=== PATIENT | male | born 1990 | race Caucasian/White ===

== ENCOUNTER 2022-01-19 14:39 | Emergency (ER) | payer SELFPAY ==
[~2022-01-19] VITALS: Ht 185.4 cm; Wt 81.8 kg
[2022-01-19] VITALS (9 sets, daily range): BP systolic 130–163; BP diastolic 61–104
[~2022-01-19 14:39] MED LIST: DOXYCYC MONO100 MG OR; FLEXERIL OR; LORTAB5 OR; MEDDOSEPAK PO; NO HOME MEDS; TRIAMCINOLON0.025 % TOP; ULTRAM50 M1 PO
[2022-01-19 15:25] LABS: HEMATOCRIT 52.1 % (39.0-50.0); IMMATURE GRANULOCYTES 0.3 % (0.0-5.0); MEAN CELL VOLUME 88.3 fL CALC (80.0-100.0); MEAN CORPUSCULAR HGB 31.4 pG CALC (26.0-32.0); MEAN CORPUSCULAR HGB CONC 35.5 g/dL CAL (32.0-36.0); NEUT# 11.83 thou/uL (1.82-7.42); RED BLOOD COUNT 5.9 mill/uL (4.70-6.10)
[2022-01-19 15:28] LABS: HEMOGLOBIN 18.5 g/dl (14.0-18.0)
[2022-01-19] MEDS ORDERED: TRAMADOL HCL50 MG PO (15:29)
[2022-01-19] MEDS ORDERED: HYDROCO/APAP1 T10 PO (15:30)
[2022-01-19] MEDS ORDERED: BENTYL10 M1 PO (15:30)
[2022-01-19] MEDS ORDERED: DIAZEPAM5 MG PO (15:31)
[2022-01-19 15:48] LABS: ALBUMIN 5.1 g/dL (3.2-5.0); ALKALINE PHOSPHATASE 80 u/l (38-126); ANION GAP 18 (6-22 (CALC)); BILIRUBIN, TOTAL 0.8 mg/dL (0.0-1.4); BUN 9 mg/dL (9-20); BUN/CREATININE RATIO 9 (12-20 (CALC)); CARBON DIOXIDE 24 mmol/l (22-30); CHLORIDE 102 mmol/l (95-108); GFR FOR AFR.AMER. > 60 ML/MIN (>=60 (CALC)); GFR OTHER RACES > 60 ML/MIN (>=60 (CALC)); LIPASE 92 u/l (23-300); SGOT/AST 26 u/l (17-59); SODIUM 139 mmol/l (137-146); TOTAL PROTEIN 8.6 g/dL (6.3-8.2)
[2022-01-19 18:47] LABS: URINE BLOOD DIPSTICK NEGATIVE (NEGATIVE); URINE GLUCOSE - DIPSTICK NEGATIVE (NEGATIVE); URINE KETONE 40 mg/dL (NEGATIVE); URINE LEUK ESTERASE NEGATIVE (NEGATIVE); URINE PH 8.5 (4.5-8.0); URINE PROTEIN - DIPSTICK 30 mg/dL (NEG-TRACE); URINE UROBILINOGEN - DIPSTICK 0.2 E.U./dL (0.2)
[2022-01-19 18:48] LABS: URINE BILIRUBIN - DIPSTICK SMALL (NEGATIVE)
[2022-01-19 18:49] LABS: URINE COLOR DK. YELLOW; URINE NITRITE - DIPSTICK NEGATIVE (Negative)
[2022-01-19 18:53] LABS: URINE RBC 0-2 RBC/hpf (0-5)
[2022-01-19 18:54] LABS: URINE MUCUS MODERATE hpf (NONE-FEW); URINE WBC 0-2 WBC/hpf (0-5)
== END 2022-01-19 18:51 | disposition short-term general hospital (02) | DRG 392 ==
LOC: ED 14:39
PROVIDERS: Family Medicine
DX: R10.84 Generalized abdominal pain (principal); E87.2 Acidosis; R11.2 Nausea with vomiting, unspecified; R19.7 Diarrhea, unspecified; F17.210 Nicotine dependence, cigarettes, uncomplicated; Z87.442 Personal history of urinary calculi

== ENCOUNTER 2022-02-04 06:07 | Observation (INO) | payer SELFPAY ==
[2022-02-04] VITALS (17 sets, daily range): BP systolic 101–192; BP diastolic 62–138
[~2022-02-04] VITALS: Ht 185.4 cm; Wt 81.0 kg
[~2022-02-04 06:07] MED LIST changes: +BENTYL10 M1 PO; +DIAZEPAM5 MG PO; +HYDROCO/APAP1 T10 PO; +TRAMADOL HCL50 MG PO
[2022-02-04 06:44] LABS: HEMATOCRIT 52.9 % (39.0-50.0); HEMOGLOBIN 18.5 g/dl (14.0-18.0); IMMATURE GRANULOCYTES 0.1 % (0.0-5.0); MEAN CELL VOLUME 90.1 fL CALC (80.0-100.0); MEAN CORPUSCULAR HGB 31.5 pG CALC (26.0-32.0); NEUT# 11.92 thou/uL (1.82-7.42); RED BLOOD COUNT 5.87 mill/uL (4.70-6.10); RED CELL DISTRI WIDTH 13.4 % (11.5-15.5)
[2022-02-04 06:58] LABS: ALBUMIN 5.1 g/dL (3.2-5.0); ALKALINE PHOSPHATASE 82 u/l (38-126); AMYLASE 88 u/l (30-110); ANION GAP 18 (6-22 (CALC)); BUN 11 mg/dL (9-20); BUN/CREATININE RATIO 10 (12-20 (CALC)); CARBON DIOXIDE 23 mmol/l (22-30); CHLORIDE 103 mmol/l (95-108); CREATININE 1.1 mg/dL (0.7-1.3); GFR FOR AFR.AMER. > 60 ML/MIN (>=60 (CALC)); GFR OTHER RACES > 60 ML/MIN (>=60 (CALC)); LIPASE 129 u/l (23-300); POTASSIUM 3.7 mmol/l (3.5-5.1); SGOT/AST 25 u/l (17-59); SODIUM 140 mmol/l (137-146); TOTAL PROTEIN 8.6 g/dL (6.3-8.2)
[2022-02-04 07:30] LABS: URINE BLOOD DIPSTICK TRACE-INTACT (NEGATIVE); URINE COLOR BROWN; URINE GLUCOSE - DIPSTICK NEGATIVE (NEGATIVE); URINE KETONE 15 mg/dL (NEGATIVE); URINE PH 5.5 (4.5-8.0); URINE PROTEIN - DIPSTICK 100 mg/dL (NEG-TRACE); URINE SPECIFIC GRAVITY >=1.030
[2022-02-04 07:37] LABS: URINE BILIRUBIN - DIPSTICK MODERATE (NEGATIVE); URINE EPITHELIAL CELLS FEW EPI/hpf (0-FEW); URINE LEUK ESTERASE NEGATIVE (NEGATIVE); URINE NITRITE - DIPSTICK POSITIVE (Negative)
[2022-02-04 07:38] LABS: URINE BACTERIA MODERATE hpf; URINE CALCIUM OXALATE CRYSTALS FEW lpf; URINE MUCUS MANY hpf (NONE-FEW)
[2022-02-05] VITALS (11 sets, daily range): BP systolic 116–161; BP diastolic 67–100
[2022-02-05 06:32] LABS: MEAN CELL VOLUME 92.3 fL CALC (80.0-100.0); MEAN CORPUSCULAR HGB CONC 34.7 g/dL CAL (32.0-36.0); RED BLOOD COUNT 4.53 mill/uL (4.70-6.10); RED CELL DISTRI WIDTH 13.9 % (11.5-15.5)
[2022-02-05 06:46] LABS: HEMATOCRIT 41.8 % (39.0-50.0); HEMOGLOBIN 14.5 g/dl (14.0-18.0)
[2022-02-05 06:47] LABS: ALKALINE PHOSPHATASE 46 u/l (38-126); ANION GAP 11 (6-22 (CALC)); BILIRUBIN, TOTAL 0.6 mg/dL (0.0-1.4); BUN 11 mg/dL (9-20); BUN/CREATININE RATIO 14 (12-20 (CALC)); CARBON DIOXIDE 22 mmol/l (22-30); CHLORIDE 112 mmol/l (95-108); CREATININE 0.8 mg/dL (0.7-1.3); GFR FOR AFR.AMER. > 60 ML/MIN (>=60 (CALC)); GFR OTHER RACES > 60 ML/MIN (>=60 (CALC)); POTASSIUM 3.9 mmol/l (3.5-5.1); SGOT/AST 18 u/l (17-59); SODIUM 141 mmol/l (137-146)
[2022-02-05 07:07] LABS: ALBUMIN 3.3 g/dL (3.2-5.0); TOTAL PROTEIN 5.4 g/dL (6.3-8.2)
[2022-02-05] MEDS ORDERED: HYDROCO/APAP1 T10 PO (11:57)
[2022-02-05] MEDS ORDERED: ONDANSETRON4 MG PO (11:57)
[2022-02-05] MEDS ORDERED: CARAFATE1 GM PO (11:57)
[2022-02-05] MEDS ORDERED: PROTONIX40 M2 PO (11:57)
== END 2022-02-05 14:02 | disposition home or self-care (01) | DRG 392 ==
LOC: ED 06:07 → ED-I 09:10 → MS2 09:56 → ED 09:56 → MS2 02-05 14:02
PROVIDERS: Emergency Medicine; ADMIT Internal Medicine; ATTEND Internal Medicine
PROC: 0DBB8ZX Excision of Ileum, Via Natural or Artificial Opening Endoscopic, Diagnostic (ICD-10-PCS; principal; 2022-02-05)
PROC: 0DBE8ZX Excision of Large Intestine, Via Natural or Artificial Opening Endoscopic, Diagnostic (ICD-10-PCS; 2022-02-05)
PROC: 0DB98ZX Excision of Duodenum, Via Natural or Artificial Opening Endoscopic, Diagnostic (ICD-10-PCS; 2022-02-05)
PROC: 0DB78ZX Excision of Stomach, Pylorus, Via Natural or Artificial Opening Endoscopic, Diagnostic (ICD-10-PCS; 2022-02-05)
PROC: 0DB68ZX Excision of Stomach, Via Natural or Artificial Opening Endoscopic, Diagnostic (ICD-10-PCS; 2022-02-05)
PROC: 0DB48ZX Excision of Esophagogastric Junction, Via Natural or Artificial Opening Endoscopic, Diagnostic (ICD-10-PCS; 2022-02-05)
DX: K29.70 Gastritis, unspecified, without bleeding (principal); E87.2 Acidosis; K29.80 Duodenitis without bleeding; K44.9 Diaphragmatic hernia without obstruction or gangrene; F17.210 Nicotine dependence, cigarettes, uncomplicated; Z87.442 Personal history of urinary calculi
CPT/HCPCS: G0378; J1650; S0164

== ENCOUNTER 2022-03-09 13:44 | Emergency (ER) | payer SELFPAY ==
[~2022-03-09] VITALS: Ht 185.4 cm; Wt 80.4 kg
[~2022-03-09 13:44] MED LIST changes: +CARAFATE1 GM PO; +ONDANSETRON4 MG PO; +PROTONIX40 M2 PO
[2022-03-09 15:50] LABS: IMMATURE GRANULOCYTES 0.3 % (0.0-5.0); MEAN CORPUSCULAR HGB 31.5 pG CALC (26.0-32.0); MEAN CORPUSCULAR HGB CONC 35.4 g/dL CAL (32.0-36.0); NEUT# 12.02 thou/uL (1.82-7.42); RED BLOOD COUNT 5.9 mill/uL (4.70-6.10); RED CELL DISTRI WIDTH 14.4 % (11.5-15.5)
[2022-03-09 15:54] LABS: HEMATOCRIT 52.5 % (39.0-50.0); HEMOGLOBIN 18.6 g/dl (14.0-18.0)
[2022-03-09 16:03] LABS: AMYLASE 98 u/l (30-110); ANION GAP 23 (6-22 (CALC)); BUN 7 mg/dL (9-20); BUN/CREATININE RATIO 10 (12-20 (CALC)); CARBON DIOXIDE 21 mmol/l (22-30); CHLORIDE 102 mmol/l (95-108); CREATININE 0.7 mg/dL (0.7-1.3); GFR FOR AFR.AMER. > 60 ML/MIN (>=60 (CALC)); GFR OTHER RACES > 60 ML/MIN (>=60 (CALC)); LIPASE 149 u/l (23-300); POTASSIUM 3.9 mmol/l (3.5-5.1); SGOT/AST 31 u/l (17-59); SODIUM 143 mmol/l (137-146)
[2022-03-09 16:12] LABS: ALBUMIN 5.5 g/dL (3.2-5.0); ALKALINE PHOSPHATASE 94 u/l (38-126); TOTAL PROTEIN 9.7 g/dL (6.3-8.2)
[2022-03-09 16:23] LABS: URINE BLOOD DIPSTICK NEGATIVE (NEGATIVE); URINE COLOR BROWN; URINE GLUCOSE - DIPSTICK NEGATIVE (NEGATIVE); URINE KETONE 15 mg/dL (NEGATIVE); URINE LEUK ESTERASE NEGATIVE (NEGATIVE); URINE PH 8.5 (4.5-8.0); URINE PROTEIN - DIPSTICK 100 mg/dL (NEG-TRACE); URINE SPECIFIC GRAVITY 1.015
[2022-03-09 16:25] LABS: URINE BILIRUBIN - DIPSTICK SMALL (NEGATIVE); URINE NITRITE - DIPSTICK NEGATIVE (Negative)
[2022-03-09 16:47] LABS: URINE RBC 0-2 RBC/hpf (0-5); URINE WBC 0-2 WBC/hpf (0-5)
[2022-03-09 16:48] LABS: URINE AMORPH SEDIMENT MANY hpf (NONE-FER); URINE TRIP PHOS CRYSTALS FEW lpf
[2022-03-09] MEDS ORDERED: PROTONIX40 M2 PO (18:21)
[2022-03-09] MEDS ORDERED: DICYCLOMINE10 MG PO (18:21)
[2022-03-09] MEDS ORDERED: CARAFATE1 GM PO (18:21)
[2022-03-09] MEDS ORDERED: REGLAN10 MG PO (18:21)
[2022-03-09 18:32] VITALS: BP 133/35
== END 2022-03-09 18:39 | disposition home or self-care (01) | DRG 392 ==
LOC: ED 13:44
PROVIDERS: Nurse Practitioner
DX: K29.70 Gastritis, unspecified, without bleeding (principal); R11.2 Nausea with vomiting, unspecified
CPT/HCPCS: S0164

== ENCOUNTER 2022-05-27 17:47 | Emergency (ER) | payer SELFPAY ==
[2022-05-27] VITALS (17 sets, daily range): BP systolic 109–173; BP diastolic 72–102
[~2022-05-27] VITALS: Ht 185.4 cm; Wt 81.8 kg
[~2022-05-27 17:47] MED LIST changes: +DICYCLOMINE10 MG PO; +REGLAN10 MG PO
[2022-05-27 18:11] LABS: HEMATOCRIT 48.6 % (39.0-50.0); HEMOGLOBIN 17.2 g/dl (14.0-18.0); IMMATURE GRANULOCYTES 0.2 % (0.0-5.0); MEAN CELL VOLUME 88.5 fL CALC (80.0-100.0); MEAN CORPUSCULAR HGB 31.3 pG CALC (26.0-32.0); MEAN CORPUSCULAR HGB CONC 35.4 g/dL CAL (32.0-36.0); NEUT# 8.67 thou/uL (1.82-7.42); RED BLOOD COUNT 5.49 mill/uL (4.70-6.10); RED CELL DISTRI WIDTH 12.6 % (11.5-15.5)
[2022-05-27 18:28] LABS: ALBUMIN 5.1 g/dL (3.2-5.0); ALKALINE PHOSPHATASE 76 u/l (38-126); ANION GAP 20 (6-22 (CALC)); BUN 6 mg/dL (9-20); BUN/CREATININE RATIO 9 (12-20 (CALC)); CARBON DIOXIDE 21 mmol/l (22-30); CHLORIDE 105 mmol/l (95-108); CREATININE 0.7 mg/dL (0.7-1.3); GFR FOR AFR.AMER. > 60 ML/MIN (>=60 (CALC)); GFR OTHER RACES > 60 ML/MIN (>=60 (CALC)); LIPASE 83 u/l (23-300); POTASSIUM 3.2 mmol/l (3.5-5.1); SGOT/AST 29 u/l (17-59); SODIUM 143 mmol/l (137-146); TOTAL PROTEIN 8.2 g/dL (6.3-8.2)
[2022-05-27 18:29] LABS: BILIRUBIN, TOTAL 0.4 mg/dL (0.0-1.4)
[2022-05-27 21:08] LABS: URINE BILIRUBIN - DIPSTICK NEGATIVE (NEGATIVE); URINE BLOOD DIPSTICK NEGATIVE (NEGATIVE); URINE COLOR YELLOW; URINE GLUCOSE - DIPSTICK NEGATIVE (NEGATIVE); URINE KETONE 15 mg/dL (NEGATIVE); URINE LEUK ESTERASE NEGATIVE (NEGATIVE); URINE PH 7.5 (4.5-8.0); URINE PROTEIN - DIPSTICK NEGATIVE (NEG-TRACE); URINE SPECIFIC GRAVITY 1.025; URINE UROBILINOGEN - DIPSTICK 0.2 E.U./dL (0.2)
[2022-05-27 21:10] LABS: URINE NITRITE - DIPSTICK NEGATIVE (Negative)
[2022-05-27] MEDS ORDERED: PEPCID20 MG PO (21:13)
[2022-05-27] MEDS ORDERED: LORTAB 1010 MG PO (21:13)
[2022-05-27] MEDS ORDERED: ONDANSETRON4 MG PO (21:13)
[2022-05-27] MEDS ORDERED: CARAFATE PO (21:13)
== END 2022-05-27 22:25 | disposition home or self-care (01) | DRG 392 ==
LOC: ED 17:47
PROVIDERS: Family Medicine
DX: K29.70 Gastritis, unspecified, without bleeding (principal)

== ENCOUNTER 2022-06-11 07:20 | Emergency (ER) | payer SELFPAY ==
[~2022-06-11] VITALS: Ht 185.4 cm; Wt 80.7 kg
[2022-06-11] VITALS (9 sets, daily range): BP systolic 61–170; BP diastolic 23–111
[~2022-06-11 07:20] MED LIST changes: +CARAFATE PO; +LORTAB 1010 MG PO; +PEPCID20 MG PO
[2022-06-11 08:09] LABS: HEMATOCRIT 47.3 % (39.0-50.0); HEMOGLOBIN 16.4 g/dl (14.0-18.0); IMMATURE GRANULOCYTES 0.1 % (0.0-5.0); MEAN CELL VOLUME 92.7 fL CALC (80.0-100.0); MEAN CORPUSCULAR HGB 32.2 pG CALC (26.0-32.0); MEAN CORPUSCULAR HGB CONC 34.7 g/dL CAL (32.0-36.0); NEUT# 15.02 thou/uL (1.82-7.42); RED BLOOD COUNT 5.1 mill/uL (4.70-6.10); RED CELL DISTRI WIDTH 13.4 % (11.5-15.5)
[2022-06-11 09:21] LABS: ALBUMIN 4.4 g/dL (3.2-5.0); ALKALINE PHOSPHATASE 54 u/l (38-126); BILIRUBIN, TOTAL 0.5 mg/dL (0.0-1.4); BUN 12 mg/dL (9-20); BUN/CREATININE RATIO 17 (12-20 (CALC)); CARBON DIOXIDE 20 mmol/l (22-30); CHLORIDE 109 mmol/l (95-108); CREATININE 0.7 mg/dL (0.7-1.3); GFR FOR AFR.AMER. > 60 ML/MIN (>=60 (CALC)); GFR OTHER RACES > 60 ML/MIN (>=60 (CALC)); LIPASE 126 u/l (23-300); SGOT/AST 22 u/l (17-59); SODIUM 141 mmol/l (137-146); TOTAL PROTEIN 6.8 g/dL (6.3-8.2)
[2022-06-11 09:24] LABS: ANION GAP 17 (6-22 (CALC)); POTASSIUM 4.5 mmol/l (3.5-5.1)
== END 2022-06-11 10:53 | disposition left against medical advice (07) | DRG 392 ==
LOC: ED 07:20
PROVIDERS: Emergency Medicine
DX: R10.9 Unspecified abdominal pain (principal)

== ENCOUNTER 2022-06-19 15:35 | Emergency (ER) | payer SELFPAY ==
[~2022-06-19] VITALS: Ht 185.4 cm; Wt 80.7 kg
[2022-06-19 16:14] VITALS: BP 153/109
[2022-06-19 17:17] LABS: HEMATOCRIT 48.2 % (39.0-50.0); HEMOGLOBIN 17.1 g/dl (14.0-18.0); IMMATURE GRANULOCYTES 0.2 % (0.0-5.0); MEAN CELL VOLUME 89.6 fL CALC (80.0-100.0); MEAN CORPUSCULAR HGB 31.8 pG CALC (26.0-32.0); MEAN CORPUSCULAR HGB CONC 35.5 g/dL CAL (32.0-36.0); NEUT# 13.38 thou/uL (1.82-7.42); RED BLOOD COUNT 5.38 mill/uL (4.70-6.10); RED CELL DISTRI WIDTH 13.5 % (11.5-15.5)
[2022-06-19 17:26] LABS: ANION GAP 19 (6-22 (CALC)); BILIRUBIN, TOTAL 0.6 mg/dL (0.0-1.4); BUN 11 mg/dL (9-20); BUN/CREATININE RATIO 14 (12-20 (CALC)); CARBON DIOXIDE 21 mmol/l (22-30); CHLORIDE 107 mmol/l (95-108); CREATININE 0.8 mg/dL (0.7-1.3); GFR FOR AFR.AMER. > 60 ML/MIN (>=60 (CALC)); GFR OTHER RACES > 60 ML/MIN (>=60 (CALC)); LIPASE 34 u/l (23-300); POTASSIUM 3.9 mmol/l (3.5-5.1); SGOT/AST 33 u/l (17-59); SODIUM 143 mmol/l (137-146)
[2022-06-19 17:27] LABS: ALKALINE PHOSPHATASE 85 u/l (38-126); TOTAL PROTEIN 8.3 g/dL (6.3-8.2)
[2022-06-19 18:24] VITALS: BP 183/106
[2022-06-19] MEDS ORDERED: CLONIDINE0.2 MG PO (19:41)
[2022-06-19 19:54] VITALS: BP 183/106
== END 2022-06-19 20:05 | disposition home or self-care (01) | DRG 392 ==
LOC: ED 15:35
PROVIDERS: Family Medicine
DX: R10.9 Unspecified abdominal pain (principal); F11.23 Opioid dependence with withdrawal; R11.2 Nausea with vomiting, unspecified

== ENCOUNTER 2022-07-20 15:29 | Emergency (ER) | payer SELFPAY ==
[~2022-07-20] VITALS: Ht 185.4 cm; Wt 79.1 kg
[~2022-07-20 15:29] MED LIST changes: +CLONIDINE0.2 MG PO
[2022-07-20] MEDS ORDERED: OMEPRAZOLE DR40 MG (17:09)
[2022-07-20 17:54] LABS: BASO% 0.1 % (0-3); EOS% 4.3 % (0-8); HEMATOCRIT 44.1 % (39.0-50.0); HEMOGLOBIN 15.6 g/dl (14.0-18.0); IMMATURE GRANULOCYTES 0.1 % (0.0-5.0); LYMPH% 23.8 % (15-41); MEAN CELL VOLUME 92.8 fL CALC (80.0-100.0); MEAN CORPUSCULAR HGB 32.8 pG CALC (26.0-32.0); MEAN CORPUSCULAR HGB CONC 35.4 g/dL CAL (32.0-36.0); MONO% 9.5 % (2-13); NEUT# 4.51 thou/uL (1.82-7.42); NEUT% 62.2 % (42-76); RED BLOOD COUNT 4.75 mill/uL (4.70-6.10); RED CELL DISTRI WIDTH 13.4 % (11.5-15.5)
[2022-07-20 18:08] LABS: ALBUMIN 4.5 g/dL (3.2-5.0); ALKALINE PHOSPHATASE 64 u/l (38-126); BILIRUBIN, TOTAL 0.5 mg/dL (0.0-1.4); BUN 17 mg/dL (9-20); BUN/CREATININE RATIO 20 (12-20 (CALC)); CHLORIDE 102 mmol/l (95-108); CREATININE 0.9 mg/dL (0.7-1.3); GFR FOR AFR.AMER. > 60 ML/MIN (>=60 (CALC)); GFR OTHER RACES > 60 ML/MIN (>=60 (CALC)); LIPASE 20 u/l (23-300); POTASSIUM 4.1 mmol/l (3.5-5.1); SGOT/AST 28 u/l (17-59); SODIUM 136 mmol/l (137-146); TOTAL PROTEIN 7.3 g/dL (6.3-8.2)
[2022-07-20 18:20] LABS: ETHYL ALCOHOL 0 mg/dl (0-30)
[2022-07-20 18:22] LABS: ANION GAP 8 (6-22 (CALC)); CARBON DIOXIDE 30 mmol/l (22-30)
[2022-07-20 18:40] LABS: URINE BILIRUBIN - DIPSTICK NEGATIVE (NEGATIVE); URINE BLOOD DIPSTICK NEGATIVE (NEGATIVE); URINE COLOR YELLOW; URINE GLUCOSE - DIPSTICK NEGATIVE (NEGATIVE); URINE KETONE NEGATIVE (NEGATIVE); URINE LEUK ESTERASE NEGATIVE (NEGATIVE); URINE PH 6.5 (4.5-8.0); URINE PROTEIN - DIPSTICK NEGATIVE (NEG-TRACE); URINE UROBILINOGEN - DIPSTICK 0.2 E.U./dL (0.2)
[2022-07-20 18:41] LABS: ACT PARTIAL THROMBO TIME 19.1 SECONDS (20.0-32.5); PROTHROMBIN TIME 10.2 SECONDS (9.0-12.5)
[2022-07-20 18:42] LABS: URINE NITRITE - DIPSTICK NEGATIVE (Negative)
[2022-07-20 19:40] VITALS: BP 113/65
== END 2022-07-20 19:42 | disposition left against medical advice (07) | DRG 378 ==
LOC: ED 15:29
PROVIDERS: Emergency Medicine
DX: K92.1 Melena (principal); K50.90 Crohn's disease, unspecified, without complications; R13.10 Dysphagia, unspecified; Z53.29 Procedure and treatment not carried out because of patient's decision for other reasons
CPT/HCPCS: S0164

== ENCOUNTER 2024-02-04 09:14 | Observation (INO) | payer SELFPAY ==
[~2024-02-04] VITALS: Ht 185.4 cm; Wt 77.0 kg
[2024-02-04] VITALS (18 sets, daily range): BP systolic 110–183; BP diastolic 70–134
[~2024-02-04 09:14] MED LIST changes: +OMEPRAZOLE DR40 MG
--- NOTE | 2024-02-04 09:15 | NUR ---
PT TO ER ROOM 13 VIA EMS.
[2024-02-04] MEDS ORDERED: SODIUM CHLORIDE 0.9% 1,000 ML IV ONE ×3 (09:20→11:45)
[2024-02-04] MEDS ORDERED: KETOROLAC TROMETHAMINE 30 MG/ML SDV IV ONE (09:20)
[2024-02-04] MEDS ORDERED: ONDANSETRON HCl 4 MG/2 ML SDV IV ONE (09:20)
[2024-02-04] MEDS ORDERED: Pantoprazole Sodium 40 MG VIAL (Protonix) IV ONE (09:25)
--- NOTE | 2024-02-04 09:37 | NUR ---
multiple iv attempts to start an iv. 22g iv started by elvira eid on right foot.
[2024-02-04 09:44] LABS: BASO% 0.1 % (0-3); EOS% 0.2 % (0-8); HEMATOCRIT 49.3 % (39.0-50.0); HEMOGLOBIN 17.2 g/dl (14.0-18.0); IMMATURE GRANULOCYTES 0.4 % (0.0-5.0); LYMPH% 6.1 % (15-41); MEAN CORPUSCULAR HGB CONC 34.9 g/dL CAL (32.0-36.0); MONO% 5.9 % (2-13); NEUT# 24.04 thou/uL (1.82-7.42); NEUT% 87.3 % (42-76); RED BLOOD COUNT 5.54 mill/uL (4.70-6.10)
[2024-02-04] MEDS ORDERED: PROMETHAZINE HCL 25 MG/ML AMP IM ONE (10:00)
[2024-02-04 10:02] LABS: BILIRUBIN, TOTAL 0.7 mg/dL (0.2-1.3); POTASSIUM 3.5 mmol/l (3.5-5.1); TOTAL PROTEIN 8.3 g/dL (6.3-8.2)
[2024-02-04] MEDS ORDERED: MORPHINE SULFATE 4 MG/ML VIAL IV ONE (10:10)
--- NOTE | 2024-02-04 10:27 | NUR ---
DR. ZAMBRANO PERFORMING RECTAL PAIN. PATIENT COMPLAINS THAT THE PAIN IS NOT GETTING BETTER
[2024-02-04] MEDS ORDERED: HYDROmorphone HCL 2 MG/AMP IV ONE (10:55)
[2024-02-04] MEDS ORDERED: HALOPERIDOL LACTATE 5 MG/ML SDV IV ONE (10:55)
[2024-02-04] MEDS ORDERED: PIPERACILLIN Sodium-Tazobactam 3.375 GM in SODIUM CHLORIDE 0.9% 100 ML IV ONE (11:45)
--- NOTE | 2024-02-04 12:08 | NUR ---
DR. ZAMBRANO IN ROOM SPEAKING WITH PATIENT. PATIENT HAS 600ML OF URINE IN URINAL
[2024-02-04] MEDS ORDERED: methylPREDNISolone Sod Succ 40 MG/ML SDV IV ONE (12:15)
[2024-02-04 12:42] LABS: URINE BILIRUBIN - DIPSTICK Negative (NEGATIVE); URINE BLOOD DIPSTICK Negative (NEGATIVE); URINE COLOR Yellow; URINE GLUCOSE - DIPSTICK Negative (NEGATIVE); URINE KETONE Negative (NEGATIVE); URINE LEUK ESTERASE Negative (NEGATIVE); URINE NITRITE - DIPSTICK Negative (Negative); URINE PH 8.5 (4.5-8.0); URINE PROTEIN - DIPSTICK Negative (NEG-TRACE); URINE UROBILINOGEN - DIPSTICK 0.2 E.U./dL (0.2)
--- NOTE | 2024-02-04 13:03 | NUR ---
urine output 300ml
[2024-02-04] MEDS ORDERED: METHADONE HC10 MG/ML PO (13:11)
--- NOTE | 2024-02-04 13:20 | NUR ---
male pt received to [facility] via [facility] accompanied by nurse in stable condition; moaning loudly/restless down the esteban; ambulatory to scale then bed; admission assessment completed at this time; pt alert and oriented; pt admits to abd pain, n/v and diarrhea since last night; will medicate; resp even and unlabored; hr reg; tele monitor intact; abd soft/ tender with bs present; no bm noted; urinal provided; #20 to rac patent with ivf bolus infusing without complication; #22 to left foot flushed and patent; no redness or edema noted at site; plan of care/ diet/ meds explained; home liquid [employer] retrieve from patient and secured approx in tamper proof bag within view with 2nd nurse as a witness; call light within reach; will continue to monitor
[2024-02-04] MEDS ORDERED: LABETALOL HCL 20 MG/ 4 ML CARTRG IV PRN (13:45)
[2024-02-04] MEDS ORDERED: HYDROcodone 7.5 MG/Acetaminophen 325 MG/COMBO PO PRN (13:45)
[2024-02-04] MEDS ORDERED: SODIUM CHLORIDE 0.9% 1,000 ML IV PRN (13:45)
[2024-02-04] MEDS ORDERED: MAGNESIUM HYDROXIDE 30 ML UDC PO PRN (13:45)
[2024-02-04] MEDS ORDERED: HYDROmorphone HCL 2 MG/AMP IV PRN (13:45)
[2024-02-04] MEDS ORDERED: ACETAMINOPHEN 325 MG/TAB PO PRN (13:45)
--- NOTE | 2024-02-04 16:00 | NUR ---
PT IS RESTING IN BED, CALL LIGHT WITHIN REACH.
[2024-02-04] MEDS ORDERED: PIPERACILLIN Sodium-Tazobactam 3.375 GM in SODIUM CHLORIDE 0.9% 100 ML IV SCH (18:00)
--- NOTE | 2024-02-04 20:00 | NUR ---
BEDSIDE SHIFT REPORT COMPLETED. RESP EVEN AND UNLABORED. CALL LIGHT AND PERSONAL ITEMS WITHIN REACH. NO C/O CURRENTLY.
[2024-02-04] MEDS ORDERED: ENOXAPARIN SODIUM 40 MG/0.4 ML SYR SC SCH (21:00)
[2024-02-04] MEDS ORDERED: methylPREDNISolone Sod Succ 40 MG/ML SDV IV SCH (21:00)
--- NOTE | 2024-02-05 | NUR ---
MEDICATED WITH IV DILAUDID WITH GOOD RESULTS. USES URINAL FOR ELIMINATION.
--- NOTE | 2024-02-05 02:30 | NUR ---
MEDICATED WITH IV DILAUDID FOR C/O ABD PAIN 03/13.
--- NOTE | 2024-02-05 03:30 | NUR ---
MINIMAL RESULTS FROM IV DILAUDID. GAVE PRN LORITAB FOR CONTINUAL PAIN OF 9/. REQUESTED NICOTINE PATCH. WILL NOTIFY MD IN AM OF PATIENTS REQUEST.
[2024-02-05 05:06] VITALS: BP 120/82
[2024-02-05 05:39] LABS: HEMATOCRIT 45.6 % (39.0-50.0); HEMOGLOBIN 15.8 g/dl (14.0-18.0); MEAN CELL VOLUME 92.3 fL CALC (80.0-100.0); MEAN CORPUSCULAR HGB CONC 34.6 g/dL CAL (32.0-36.0); RED BLOOD COUNT 4.94 mill/uL (4.70-6.10); RED CELL DISTRI WIDTH 13.5 % (11.5-15.5)
[2024-02-05 05:47] LABS: ALBUMIN 4.1 g/dL (3.2-5.0); BILIRUBIN, TOTAL 0.6 mg/dL (0.2-1.3); CREATININE 0.7 mg/dL (0.7-1.3); MAGNESIUM 1.7 mg/dL (1.6-2.3); POTASSIUM 4.1 mmol/l (3.5-5.1); TOTAL PROTEIN 6.8 g/dL (6.3-8.2)
[2024-02-05 07:04] VITALS: BP 112/97
--- NOTE | 2024-02-05 07:32 | NUR ---
SHIFT CHANGE REPORT, PT AWAKE ALERT AND ORIENTED SITTING UP IN BED, C/O THROBBING EPIGASTRIC PAIN @ 03/13, ISSUE ADDRESSED, IVF INFUSING, TELE MONITOR IN PLACE. ALSO C/O NAUSEA AT THIS TIME. CALL CERVANTES IN REACH AND BED LOCKED IN LOWEST POSITION.
[2024-02-05] MEDS ORDERED: NICOTINE TRANSDERMAL 21 MG/PATCH TD SCH (08:00)
[2024-02-05] MEDS ORDERED: AMOX/K CLAV875 M1 PO (08:57)
[2024-02-05] MEDS ORDERED: PREDNISONE10 MG PO (08:57)
--- NOTE | 2024-02-05 10:45 | NUR ---
Discharge instructions given. Patient verbalizes understanding of same. Discharged in good condition via Ambulatory to Home with family. All belongings sent with pt.
== END 2024-02-05 10:00 | disposition home or self-care (01) | DRG 386 ==
LOC: ED 09:14 → ED-I 12:00 → ED 12:17 → MS2 12:18
PROVIDERS: Family Medicine; ADMIT Internal Medicine; ATTEND Internal Medicine
DX: K50.80 Crohn's disease of both small and large intestine without complications (principal); E87.20 Acidosis, unspecified; F17.200 Nicotine dependence, unspecified, uncomplicated; Z87.442 Personal history of urinary calculi; Z91.190 Patient's noncompliance with other medical treatment and regimen due to financial hardship
CPT/HCPCS: G0378; J1650; J2470

== ENCOUNTER 2024-02-16 09:01 | Emergency (ER) | payer SELFPAY ==
[~2024-02-16] VITALS: Ht 185.4 cm; Wt 86.0 kg
[2024-02-16] VITALS (23 sets, daily range): BP systolic 121–176; BP diastolic 79–113
[~2024-02-16 09:01] MED LIST changes: +AMOX/K CLAV875 M1 PO; +METHADONE HC10 MG/ML PO; +PREDNISONE10 MG PO
[2024-02-16] MEDS ORDERED: SODIUM CHLORIDE 0.9% 1,000 ML IV ONE (09:20)
[2024-02-16] MEDS ORDERED: HYDROmorphone HCL 2 MG/TAB OR ONE (09:20)
[2024-02-16] MEDS ORDERED: HALOPERIDOL LACTATE 5 MG/ML SDV IV ONE ×2 (09:20→09:30)
[2024-02-16] MEDS ORDERED: HYDROmorphone HCL 2 MG/AMP IV ONE ×2 (09:35→11:30)
[2024-02-16 09:42] LABS: HEMOGLOBIN 17.2 g/dl (14.0-18.0); MEAN CELL VOLUME 93.9 fL CALC (80.0-100.0); MEAN CORPUSCULAR HGB 30.9 pG CALC (26.0-32.0); MEAN CORPUSCULAR HGB CONC 32.9 g/dL CAL (32.0-36.0); PLATELET COUNT 301 thou/uL (130-400); RED BLOOD COUNT 5.57 mill/uL (4.70-6.10); RED CELL DISTRI WIDTH 14.4 % (11.5-15.5)
[2024-02-16 09:43] LABS: HEMATOCRIT 52.3 % (39.0-50.0)
[2024-02-16 09:44] LABS: MANUAL DIFFERENTIAL YES
[2024-02-16 09:56] LABS: ALBUMIN 4.7 g/dL (3.2-5.0); BILIRUBIN, TOTAL 0.6 mg/dL (0.2-1.3); CREATININE 0.9 mg/dL (0.7-1.3); POTASSIUM 4.1 mmol/l (3.5-5.1); TOTAL PROTEIN 7.5 g/dL (6.3-8.2)
[2024-02-16 10:07] LABS: BAND 2 % (0-8)
[2024-02-16 11:10] LABS: URINE BILIRUBIN - DIPSTICK Negative (NEGATIVE); URINE BLOOD DIPSTICK Negative (NEGATIVE); URINE GLUCOSE - DIPSTICK Negative (NEGATIVE); URINE KETONE Negative (NEGATIVE); URINE LEUK ESTERASE Negative (NEGATIVE); URINE NITRITE - DIPSTICK Negative (Negative); URINE PH >=9.0 (4.5-8.0); URINE PROTEIN - DIPSTICK Negative (NEG-TRACE); URINE SPECIFIC GRAVITY 1.015; URINE UROBILINOGEN - DIPSTICK 0.2 E.U./dL (0.2)
[2024-02-16 11:11] LABS: URINE COLOR Yellow
[2024-02-16] MEDS ORDERED: CIPROFLOXACN500 MG PO (13:23)
[2024-02-16] MEDS ORDERED: METRONIDAZOLE500 MG PO (13:23)
[2024-02-16] MEDS ORDERED: ZOFRAN4 MG/TAB PO (13:23)
== END 2024-02-16 14:34 | disposition home or self-care (01) | DRG 386 ==
LOC: ED 09:01
PROVIDERS: Family Medicine
DX: K50.80 Crohn's disease of both small and large intestine without complications (principal); D72.829 Elevated white blood cell count, unspecified; F11.20 Opioid dependence, uncomplicated; F17.200 Nicotine dependence, unspecified, uncomplicated; Z87.442 Personal history of urinary calculi

== ENCOUNTER 2024-06-29 16:25 | Emergency (ER) | payer SELFPAY ==
[~2024-06-29] VITALS: Ht 185.4 cm; Wt 84.0 kg
[~2024-06-29 16:25] MED LIST changes: +CIPROFLOXACN500 MG PO; +METRONIDAZOLE500 MG PO; +ZOFRAN4 MG/TAB PO
[2024-06-29 17:12] VITALS: BP 206/108
== END 2024-06-29 19:00 | disposition left against medical advice (07) | DRG 951 ==
LOC: ED 16:25 → LWOBS 19:00
DX: Z53.21 Procedure and treatment not carried out due to patient leaving prior to being seen by health care provider (principal)

== ENCOUNTER 2024-07-03 17:39 | Emergency (ER) | payer SELFPAY ==
[~2024-07-03] VITALS: Ht 185.4 cm
[2024-07-03] MEDS ORDERED: SODIUM CHLORIDE 0.9% 1,000 ML IV ONE ×2 (17:45→17:50)
[2024-07-03] MEDS ORDERED: ONDANSETRON HCl 4 MG/2 ML SDV IV ONE (17:45)
[2024-07-03] MEDS ORDERED: cloNIDine HCL 0.1 MG/TAB PO ONE (18:00)
[2024-07-03] MEDS ORDERED: HALOPERIDOL LACTATE 5 MG/ML SDV IV ONE (18:15)
[2024-07-03 18:21] VITALS: BP 140/94
[2024-07-03 18:40] LABS: BASO% 0.3 % (0-3); EOS% 2.3 % (0-8); HEMATOCRIT 51.5 % (39.0-50.0); HEMOGLOBIN 17.7 g/dl (14.0-18.0); IMMATURE GRANULOCYTES 0.3 % (0.0-5.0); LYMPH% 10.9 % (15-41); MEAN CELL VOLUME 91.5 fL CALC (80.0-100.0); MEAN CORPUSCULAR HGB 31.4 pG CALC (26.0-32.0); MEAN CORPUSCULAR HGB CONC 34.4 g/dL CAL (32.0-36.0); NEUT# 14.99 thou/uL (1.82-7.42); NEUT% 79.2 % (42-76); RED BLOOD COUNT 5.63 mill/uL (4.70-6.10); RED CELL DISTRI WIDTH 14.6 % (11.5-15.5)
[2024-07-03 18:41] LABS: POTASSIUM 3.7 mmol/l (3.5-5.1); TOTAL PROTEIN 8.1 g/dL (6.3-8.2)
== END 2024-07-03 18:34 | disposition left against medical advice (07) | DRG 392 ==
LOC: ED 17:39
PROVIDERS: Nurse Practitioner
DX: R11.2 Nausea with vomiting, unspecified (principal); Z53.29 Procedure and treatment not carried out because of patient's decision for other reasons
CPT/HCPCS: J1630; J2405